=== PATIENT | female | born 1960 | race Caucasian/White ===

== ENCOUNTER → 2017-01-08 | Outpatient (CLI) | payer OTHER ==
--- NOTE | 2017-01-08 15:06 | MR ---
EXAMINATION TYPE: MR thoracic spine wo con DATE OF EXAM: 01/08/2017 2:47 PM COMPARISON: NONE HISTORY: arthropathy, right groin pain Multiplanar MultiSpin echo imaging of the thoracic spine was performed. Disc spaces: Mild multilevel degenerative disc disease and spondylosis. No evidence for herniation or protrusion. Spinal canal: No evidence for canal stenosis. No intrinsic or extrinsic lesion. Thoracic spinal cord: Thoracic spinal cord is of normal caliber and signal. Paraspinal soft tissues: No evidence for paraspinal mass. No destructive lesions seen. Vertebral segments: No evidence for fracture or bony lesion. IMPRESSION: 1. Mild degenerative disc disease and spondylosis. No evidence for significant disc bulge, herniation or protrusion. No central stenosis.
== END | disposition home or self-care (01) ==
LOC: RADMRIMAIN 13:37
PROVIDERS: ATTEND Internal Medicine
DX: M51.34 Other intervertebral disc degeneration, thoracic region (principal); M47.814 Spondylosis without myelopathy or radiculopathy, thoracic region
CPT/HCPCS: 72146

== ENCOUNTER → 2018-06-10 | Outpatient (CLI) | payer BC ==
--- NOTE | 2018-06-10 23:23 | CONS ---
CONSULTATION This is a consultation for sleep apnea. This is a 57-year-old female patient with having his cardiac arrhythmia and there was a concern that she may have an underlying obstructive sleep apnea. Note that the patient has history of SVT and she has undergone ablation x2. SVT was ablated and following that, the patient started developing paroxysmal atrial fibrillation. Currently she has a loop recorder in place. She is having nocturnal atrial fibrillation where she is waking up with palpitations and this has occurred on several occasions. Currently she is taking flecainide 100 mg twice a day. She is also on metoprolol for rate control and Xarelto. Current rhythm is sinus for now. In terms of sleep apnea. She has loud snoring. She wakes up with dry mouth. She has night time arousals with palpitation and atrial fibrillation. She goes to bed around 9 to 10 p.m., wakes up at 4 a.m. in the morning. She is averaging 7 hours of sleep at least. No major hypersomnia or sleepiness. Her [place] score is at 3. No recent weight gain. The patient has lost around 10 pounds since her last evaluation. The patient is sleeps in different body positions other than her stomach. No history of any motor vehicle accident because of feeling drowsy or sleepy during the day. No chest pain. No nocturnal heartburn. PAST MEDICAL HISTORY: 1. Obesity. 2. History of supraventricular tachycardia. 3. History of paroxysmal atrial fibrillation. 4. Hypertension. PAST SURGICAL HISTORY: Include cholecystectomy, appendectomy, tonsillectomy and adenoidectomy. DRUG ALLERGIES: Not known. SHE IS ALLERGIC TO TAPE. OUTPATIENT MEDICATIONS INCLUDE: 1. Flecainide 100 mg twice a day. 2. Xarelto 20 mg p.o. daily. 3. Metoprolol 50 mg p.o. daily. 4. Norvasc 10 mg p.o. daily. SOCIAL HISTORY: No history of smoking, no history of alcoholism. No history of IV drugs. FAMILY HISTORY: Father has obstructive sleep apnea. REVIEW OF SYSTEMS: 14-point review of system was done. Positive findings are mentioned in history of present illness. No history of any insomnia he does not wake up gasping or choking. No nocturia. No grinding of the teeth. No sleepwalking. No anxiety or panic attacks. No depression. No heartburn. No restlessness in lower extremities. No anxiety. No depression. No memory problems or concentration problems. She has palpitations specially at night time and she has woken up a couple of times with atrial fibrillation. No focal neurological deficits. No previous history of TIAs. No altered mentation. PHYSICAL EXAMINATION: BP is 140/8, pulse 64, respirations 16, temperature 98.5, saturation is 96% on room air. Weight is 266. Height is 5 feet 7 inches and neck size 16.5 inches, BMI 41.6. GENERAL APPEARANCE: Calm comfortable. Head is atraumatic, normocephalic. NECK: Supple. No JVD. No goiter or neck masses. Mallampati class IV. LUNGS: Clear to auscultation. HEART: Sounds regular rate and rhythm. Normal S1, S2. No S3. No murmurs. ABDOMEN: Soft, nontender. No organomegaly. EXTREMITIES: No edema. No cyanosis or clubbing. NEUROLOGIC: Alert and oriented x3. No focal neurological deficits. PSYCHIATRIC: Negative for anxiety or depression. Skin is negative for any wounds or ulcerations. IMPRESSION: 1. Loud snoring. 2. Paroxysmal atrial fibrillation with nocturnal episodes based on loop recording. History of underlying obstructive sleep apnea. 3. Previous history of supraventricular tachycardia status post ablation. 4. Obesity with a BMI of 41.6. 5. Family history of obstructive sleep apnea. PLAN: Discussed the findings with the patient. Obviously there was a concern for sleep breathing disorder especially with her underlying cardiac history and this warrants further investigation. I am going to proceed with a home sleep study to look for any significant apneas or hypopneas during nocturnal oxygen desaturation. Contributing to this patient's cardiac arrhythmias. She was encouraged to lose weight. Her current BMI is 41.6. She will benefit from weight loss. No major hypersomnia or sleepiness. No signs of any congestive heart failure. Continue same medication. Implement good sleep hygiene. We will continue to follow. We will make further recommendations based on the results of the home sleep study. MMODL / IJN: [id number] /
== END ==
LOC: SLEEP 15:20
PROVIDERS: ATTEND Internal Medicine
DX: G47.33 Obstructive sleep apnea (adult) (pediatric) (principal); E66.9 Obesity, unspecified; I47.1 Supraventricular tachycardia; Z68.41 Body mass index [BMI] 40.0-44.9, adult
CPT/HCPCS: 99211

== ENCOUNTER → 2018-10-28 | Outpatient (CLI) | payer BC ==
--- NOTE | 2018-10-28 16:50 | PN ---
PROGRESS NOTE This is a pleasant 57-year-old female patient coming in for a compliance check regarding obstructive sleep apnea. The patient was diagnosed having mild IRAM with an AHI of 14 and the patient was given CPAP therapy at a pressure of 8 cm of water. On today's evaluation, the patient is feeling slightly better. She reports marked decrease in the frequency of A. fib that she was having and this was recorded on the monitor. The patient has been averaging around 5 hours of CPAP use per night and her use of more than 4 hours at 19 out of 30. AHI is down to 2.3 and leak is 11/L per minute. She is using a rebreather nose mask. No major hypersomnia or sleepiness. [place] score is down to 3. She has gained a few pounds in the order of 10 pounds over the past 1 month. REVIEW OF SYSTEMS: Full review of system was done. Positive findings are mentioned above in history of present illness. PHYSICAL EXAMINATION: BP is 155/84, pulse is 58, respirations 16, and weight is 276, temperature 97.8. Saturation 97% on room air. GENERAL APPEARANCE: Calm, comfortable. HEENT: Head is atraumatic, normocephalic. NECK: Supple. No JVD. No goiter. No neck mass. LUNGS: Clear to auscultation. HEART: Sounds regular rate and rhythm. Normal S1, S2. No S3, no murmurs. ABDOMEN: Soft, nontender. No organomegaly. EXTREMITIES: No edema, cyanosis or clubbing. NEUROLOGIC: The patient is alert and oriented x3. No focal neurological deficits. PSYCHIATRIC: Negative for anxiety or depression. IMPRESSION: 1. Obstructive sleep apnea. Mild in severity. AHI of 14. Currently on CPAP pressure of 8 cm of water. Treatment has been extremely successful. 2. Obesity with interval 10 pounds weight gain. 3. Hypersomnia, improved. 4. Paroxysmal atrial fibrillation. 5. Hypertension. PLAN: 1. Encourage weight loss. 2. Keep same CPAP pressure. 3. Continue Revita nose mask. 4. Encourage weight loss. 5. Treatment is successful, see me back in a year's time, earlier if needed. MMODL / IJN: [id number] /
== END | disposition home or self-care (01) ==

== ENCOUNTER → 2019-04-09 | Outpatient (CLI) | payer BC ==
[2019-04-09 10:43] LABS: Basophils % (A) 1 %; Eosinophils # (A) 0.2 k/uL (0-0.7); Eosinophils % (A) 2 %; HCT 41.5 % (34.0-46.0); HGB 14.3 gm/dL (11.4-16.0); Lymphocytes # (A) 2.2 k/uL (1.0-4.8); Lymphocytes % (A) 32 %; MCH 30.8 pg (25.0-35.0); MCHC 34.4 g/dL (31.0-37.0); MCV 89.7 fL (80.0-100.0); Mean Platelet Volume 7.7; Monocytes # (A) 0.4 k/uL (0-1.0); Monocytes % (A) 6 %; Neutrophils % (A) 57 %; Platelet Count 309 k/uL (150-450); RBC 4.62 m/uL (3.80-5.40); RDW 13.4 % (11.5-15.5)
== END | disposition home or self-care (01) ==
LOC: LABPAT 09:36
PROVIDERS: ATTEND Obstetrics & Gynecology
DX: Z01.818 Encounter for other preprocedural examination (principal); Z01.812 Encounter for preprocedural laboratory examination; N90.7 Vulvar cyst; I10 Essential (primary) hypertension
CPT/HCPCS: 85025; 93005

== ENCOUNTER 2019-04-13 07:06 | Day surgery (SDC) | payer BC ==
[2019-04-10 09:17] VITALS: BMI 42.3
[~2019-04-13 07:06] MED LIST: DEXAMETHASONE SOD PHOSPHATE 10 MG/ML 1 ML VIAL IV ONE; HYDROmorphone 0.5 MG/0.5 ML SYRINGE IVP PRN; LACTATED RINGERS 1,000 ML IV SCH; MIDAZOLAM 2 MG/2 ML VIAL IV PRN; ONDANSETRON 4 MG/2 ML VIAL IVP ONE; Pre Op ABX Message 1 EACH MISC MISCELLANE ONE; SCOPOLAMINE 1.5MG/72HR PATCH TRANSDERM ONE
[2019-04-13] MEDS ORDERED: LIDOCAINE 1% 20 ML VIAL (10MG/ML) FOR IV START INTRADERMA ONE (07:52)
[2019-04-13] MEDS ORDERED: LIDOCAINE 1%-EPI 1:100,000 20 ML VIAL SQ ONE ×2 (08:28→08:52)
[2019-04-13] MEDS ORDERED: MIDAZOLAM 2 MG/2 ML VIAL ONE (08:31)
[2019-04-13] MEDS ORDERED: KETOROLAC 30 MG/ML 1 ML VIAL ONE (08:31)
[2019-04-13] MEDS ORDERED: LIDOCAINE 1% INJ 10MG/ML (20 ML MDV) ONE (08:31)
[2019-04-13] MEDS ORDERED: fentaNYL (PF) 50 MCG/ML 2 ML AMP ONE (08:31)
[2019-04-13] MEDS ORDERED: SUCCINYLCHOLINE CHLORIDE 100 MG/5 ML SYR IV ONE (08:31)
[2019-04-13] MEDS ORDERED: PROPOFOL 10 MG/ML 20 ML VIAL IV ONE (08:31)
[2019-04-13 08:32] LABS: Potassium 4.3 mmol/L (3.5-5.1)
[2019-04-13] MEDS ORDERED: BACITRACIN 500 UNIT/GM OINT 28.4 GM TUBE TOPICAL ONE (09:07)
--- NOTE | 2019-04-13 09:14 | P.OP ---
Date of Procedure: 04/13/19 Preoperative Diagnosis: Recurrent 3-4 cm right labial cyst Postoperative Diagnosis: Same Procedure(s) Performed: Excision right labial cyst with repair of vaginal mucosa Anesthesia: SONIA Surgeon: Emily Tinajero Estimated Blood Loss (ml): 20 IV fluids (ml): 400 Urine output (ml): 100 Pathology: other (Right labial cyst) Condition: stable Description of Procedure: Patient is brought to the operating suite where general anesthetic is administered without difficulty. She's placed in the dorsal lithotomy position. The perineal body and bilateral labia are prepped and draped in usual sterile fashion. The appropriate timeout is performed to assure proper patient procedure identification. The right labia is noted to contain a 3-4 cm sebaceous appearing cyst. The vaginal mucosa is opened with a sharp scalpel. Allis clamps are used to hold the vaginal mucosa bilaterally. The handle of the scalpel is used to separate the cyst from the labial pringle. It is removed intact and sent to pathology for evaluation. Electrocautery is used on the base for excellent hemostasis. 3-0 Vicryl suture is used now to repair the vaginal mucosa and a running locking manner. 2 deep [id number] sutures are placed to assure good hemostasis. All sponge needle and enhancement counts are correct at the end of the procedure. Total estimated blood loss 20 mL's. Fluid replacement 400 mL's. Patient is brought back to recovery room in very good condition with a blood pressure 126/77, pulse 52, 98% O2 saturation. Please note that basic tracing was placed on the surface of the repair along with a jesus alberto-pad. Patient will follow-up with me in the office in 2 weeks.
[2019-04-13 09:33] VITALS: TEMP 97.4
[2019-04-13 10:14] VITALS: BP 134/88; PULSE 67; RESP 16
== END 2019-04-13 10:50 | disposition home or self-care (01) ==
LOC: OR 07:06
PROVIDERS: ATTEND Obstetrics & Gynecology
DX: L72.0 Epidermal cyst (principal); I48.91 Unspecified atrial fibrillation; I10 Essential (primary) hypertension; I47.1 Supraventricular tachycardia; G47.33 Obstructive sleep apnea (adult) (pediatric); K21.9 Gastro-esophageal reflux disease without esophagitis; M85.80 Other specified disorders of bone density and structure, unspecified site; Z86.72 Personal history of thrombophlebitis; Z86.718 Personal history of other venous thrombosis and embolism; Z79.899 Other long term (current) drug therapy; Z79.01 Long term (current) use of anticoagulants; Z91.09 Other allergy status, other than to drugs and biological substances; Z83.3 Family history of diabetes mellitus; Z82.49 Family history of ischemic heart disease and other diseases of the circulatory system; Z87.891 Personal history of nicotine dependence; Z90.49 Acquired absence of other specified parts of digestive tract; Z78.0 Asymptomatic menopausal state; Z99.89 Dependence on other enabling machines and devices; Z98.890 Other specified postprocedural states
CPT/HCPCS: 88304; 80051; 11423; J2250; J1100; J2405; J2001; J3010; J1885; J0330; J2704

== ENCOUNTER → 2019-05-08 | Outpatient (CLI) | payer BC ==
--- NOTE | 2019-05-11 13:52 | MM ---
Reason for exam: screening (asymptomatic). Last mammogram was performed 4 years and 1 month ago. History: Patient is postmenopausal and is nulliparous. Took hormonal contraceptives for 25 years beginning at age 12. Physical Findings: A clinical breast exam by your physician is recommended on an annual basis and results should be correlated with mammographic findings. MG Screening Mammo w CAD Bilateral CC, MLO, and CV view(s) were taken. Prior study comparison: March 30, 2015, left breast MG 3d diag mammo w/cad LT. October 05, 2014, left breast MG work up mamm w CAD LT. The breast tissue is heterogeneously dense. This may lower the sensitivity of mammography. No suspicious abnormality. No significant changes when compared with prior studies. ASSESSMENT: Negative, BI-RAD 1 RECOMMENDATION: Routine screening mammogram of both breasts in 1 year.
== END | disposition home or self-care (01) ==
LOC: RADMAMWWP 06:58
PROVIDERS: ATTEND Obstetrics & Gynecology
DX: Z12.31 Encounter for screening mammogram for malignant neoplasm of breast (principal)
CPT/HCPCS: 77067

== ENCOUNTER → 2019-08-14 | Outpatient (CLI) | payer BC ==
[2019-08-14 11:33] LABS: Basophils # (A) 0.1 k/uL (0-0.2); Basophils % (A) 1 %; Eosinophils # (A) 0.2 k/uL (0-0.7); Eosinophils % (A) 3 %; HCT 42.7 % (34.0-46.0); HGB 13.5 gm/dL (11.4-16.0); Lymphocytes % (A) 29 %; MCH 29.3 pg (25.0-35.0); MCHC 31.7 g/dL (31.0-37.0); MCV 92.4 fL (80.0-100.0); Mean Platelet Volume 7.6; Monocytes # (A) 0.4 k/uL (0-1.0); Monocytes % (A) 6 %; Neutrophils % (A) 58 %; Platelet Count 284 k/uL (150-450); RBC 4.62 m/uL (3.80-5.40); RDW 13.3 % (11.5-15.5); WBC 6.9 k/uL (3.8-10.6)
[2019-08-14 16:15] LABS: African American GFR (CKD) 110.7 (60.0-200.0); Albumin 4.3 g/dL (3.80-4.90); Albumin/Globulin Ratio 1.79 (1.60-3.17); BUN/Creat Ratio 21.43 Ratio (12.00-20.00); Calcium 9.1 mg/dL (8.7-10.3); Chol/HDL Ratio 2.78; Globulin 2.4 g/dL (1.6-3.3); LDL Cholesterol,Calculated 107.8 mg/dL (0.0-131.0); Non-African American GFR(CKD) 95.5 (60.0-200.0); Potassium 4.2 mmol/L (3.5-5.5); Total Bilirubin 0.7 mg/dL (0.2-1.2); Total Protein 6.7 g/dL (6.2-8.2); VLDL Calculation 13.2 mg/dL (5.00-40.00)
== END | disposition home or self-care (01) ==
LOC: LABWHC1 10:29
PROVIDERS: ATTEND Internal Medicine Clinical Cardiac Electrophysiology
DX: I10 Essential (primary) hypertension (principal); I48.0 Paroxysmal atrial fibrillation; E78.2 Mixed hyperlipidemia
CPT/HCPCS: 36415; 80053; 80061; 84443; 85025

== ENCOUNTER → 2020-02-09 | Outpatient (CLI) | payer BC ==
--- NOTE | 2020-02-09 16:49 | PN ---
PROGRESS NOTE Emily is coming in for an annual check. She has mild sleep apnea, AHI of 14, currently she is on CPAP pressure of 8. Since her last evaluation, the patient has gained around 15 pounds. She attributes this mainly to COVID-19 pandemic and inactivity. Her compliance with the CPAP machine is cut down. She is averaging around 4.4 hours of CPAP use per night, CPAP use for more than 4 hours is around 13/30 and the patient has been utilizing the machine 22/30 days and this is based on a 30-day compliancy data. Leak is noted a 7 L and AHI is down to 2.2. No new complaints otherwise for now. REVIEW OF SYSTEM: Unchanged compared to his last presentation. Weight is 289, BP is 138/77, pulse 74, respirations 16, temperature 98 0, and saturation 98% on room air. GENERAL APPEARANCE: Calm, comfortable. HEAD: Atraumatic, normocephalic. NECK: Supple. No JVD. No goiter or neck masses. LUNGS: Clear to auscultation. HEART: Heart sounds are regular rate and rhythm, normal S1, S2 no murmurs. ABDOMEN: Soft, nontender, no organomegaly. EXTREMITIES: No edema, no cyanosis or clubbing. IMPRESSION: 1. Symptomatic OS AHI of 14, currently on CPAP pressure of 8. There is some drop in compliancy compared to last year. 2. Obesity with ongoing weight gain, current BMI 45.2. 3. Chronic hypersomnia. 4. Paroxysmal atrial fibrillation, currently inactive and stable and the patient is on long-term anticoagulation with Xarelto. 5. Hypertension. PLAN: 1. Encourage weight loss. 2. Offer the patient climate line. She was complaining of some cool air pumping into her lungs and climate line should be able to regulate the temperature of the tubing and offer her some heated humidity. 3. Keep same pressure setting. 4. Improve compliancy and the patient was asked to average at least 5 or 6 hours per night, if possible. 5. See me back in followup in a year's time, earlier if needed. MMLAMARL / KIERAN: [id number] /
== END | disposition home or self-care (01) ==
LOC: SLEEP 16:06
PROVIDERS: ATTEND Internal Medicine Critical Care Medicine
DX: G47.30 Sleep apnea, unspecified (principal); I48.0 Paroxysmal atrial fibrillation; I10 Essential (primary) hypertension; E66.9 Obesity, unspecified; Z68.42 Body mass index [BMI] 45.0-49.9, adult; Z79.01 Long term (current) use of anticoagulants; Z99.89 Dependence on other enabling machines and devices

== ENCOUNTER → 2020-07-08 | Outpatient (CLI) | payer BC ==
--- NOTE | 2020-07-08 12:31 | US ---
EXAMINATION TYPE: US venous doppler duplex LE RT DATE OF EXAM: 07/08/2020 12:23 PM COMPARISON: NONE CLINICAL HISTORY: 59-year-old female Right lower extremity pain M79.604. Right leg pain x couple days following recent flight, patient on blood thinners SIDE PERFORMED: Right TECHNIQUE: The lower extremity deep venous system is examined utilizing real time linear array sonog nomi with graded compression, doppler sonography and color-flow sonography. FINDINGS: VESSELS IMAGED: Common Femoral Vein Deep Femoral Vein Greater Saphenous Vein * Femoral Vein Popliteal Vein Small Saphenous Vein * Proximal Calf Veins (* superficial vessels) Right Leg: Appears negative for DVT 6.0 x 1.4 x 3.5cm Cornejo's cyst right popliteal fossa IMPRESSION: 1. No evidence for DVT within the right lower extremity imaged from the groin to the upper calf. 2. Small to moderate sized Cornejo's cyst.
== END | disposition home or self-care (01) ==
LOC: RADUSWWP 12:05
PROVIDERS: ATTEND Internal Medicine
DX: M71.21 Synovial cyst of popliteal space [Baker], right knee (principal)

== ENCOUNTER → 2020-08-04 | Outpatient (CLI) | payer BC ==
--- NOTE | 2020-08-05 09:11 | MM ---
Reason for exam: additional evaluation requested from abnormal screening. Last mammogram was performed 1 year and 3 months ago. History: Patient is postmenopausal and is nulliparous. Took hormonal contraceptives for 25 years beginning at age 12. Physical Findings: Nurse did not find any significant physical abnormalities on exam. MG 3D Diag Mammo W/Cad IGGY Bilateral CC and MLO view(s) were taken. Prior study comparison: May 08, 2019, bilateral MG screening mammo w CAD. March 30, 2015, left breast MG 3d diag mammo w/cad LT. There are scattered fibroglandular densities. No mammographic findings. These results were verbally communicated with the patient and result sheet given to the patient on 08/04/20. ASSESSMENT: Incomplete: need additional imaging evaluation, BI-RAD 0 RECOMMENDATION: Ultrasound of both breasts. (palpable lumps)
--- NOTE | 2020-08-05 09:13 | USB ---
Reason for exam: additional evaluation requested from abnormal screening. History: Patient is postmenopausal and is nulliparous. Took hormonal contraceptives for 25 years beginning at age 12. US Breast Limited BILAT Right limited breast ultrasound including focal area of concern, retroareolar and axilla demonstrates a 1.8 x 1.1 x 2.1cm mixed lesion at 12 o'clock, heterogeneous, hyperechoic, probably benign. These results were verbally communicated with the patient and result sheet given to the patient on 08/04/20. ASSESSMENT: Probably benign, BI-RAD 3 RECOMMENDATION: Ultrasound of the right breast in 3 months.
== END | disposition home or self-care (01) ==
LOC: RADMAMWWP 13:57
PROVIDERS: ATTEND Obstetrics & Gynecology
DX: N64.89 Other specified disorders of breast (principal); N64.59 Other signs and symptoms in breast; Z78.0 Asymptomatic menopausal state
CPT/HCPCS: 77062; 77066

== ENCOUNTER 2020-09-12 07:12 | Day surgery (SDC) | payer BC ==
[2020-09-08 09:55] VITALS: BMI 45.6
[~2020-09-12 07:12] MED LIST changes: -DEXAMETHASONE SOD PHOSPHATE 10 MG/ML 1 ML VIAL IV ONE; -HYDROmorphone 0.5 MG/0.5 ML SYRINGE IVP PRN; -LACTATED RINGERS 1,000 ML IV SCH; -MIDAZOLAM 2 MG/2 ML VIAL IV PRN; -ONDANSETRON 4 MG/2 ML VIAL IVP ONE; -Pre Op ABX Message 1 EACH MISC MISCELLANE ONE; -SCOPOLAMINE 1.5MG/72HR PATCH TRANSDERM ONE; +SODIUM CHLORIDE 0.9% 1,000 ML IV SCH
[2020-09-12 07:45] VITALS: RESP 18; TEMP 98.7
[2020-09-12] MEDS ORDERED: LIDOCAINE 1% INJ 10MG/ML (20 ML MDV) ONE ×2 (08:05→08:19)
[2020-09-12] MEDS ORDERED: MIDAZOLAM 2 MG/2 ML VIAL IV ONE (08:15)
[2020-09-12] MEDS ORDERED: LIDOCAINE 1% INJ 10MG/ML (20 ML MDV) SQ ONE (08:18)
[2020-09-12] MEDS ORDERED: fentaNYL (PF) 50 MCG/ML 2 ML AMP ONE (08:25)
[2020-09-12] MEDS ORDERED: fentaNYL (PF) 50 MCG/ML 2 ML AMP IV ONE (08:25)
--- NOTE | 2020-09-12 08:33 | P.EPPROC ---
- EP Procedure Note Electrophysiology Procedure Note: Procedure: Loop explant under sedation and local anesthesia. Diagnosis: Loop monitor at [facility] Patient was brought to the EP lab in a fasting state. Written informed consent was obtained prior to the procedure. The subcutaneous device was successfully explanted under local anesthesia. Preoperative antibiotics were administered. The wound was closed in layers and dressed per protocol. Result: Successful loop monitor explantation. Loop monitor implant Primary physicians: [facility] Worker: Dr. Trimble Indication: A. fib management, patient is on flecainide, has paroxysms of A. fib as well as tachybradycardia syndrome Patient was brought to the EP lab in a fasting state. Written informed consent was obtained prior to the procedure. The left pectoral area was prepped and draped per protocol. Intravenous antibiotic was administered preoperatively. A subcutaneous Loop monitor was implanted successfully and the wound was closed per protocol. The device was programmed to detect significant kristen- arrhythmic and tachy-arrhythmic events, per protocol. Device and programming details: A. fib and bradycardia detections Patient underwent EP procedure under conscious sedation/moderate sedation, monitoring of the level of consciousness and physiologic parameters including but not limited to vital signs and oxygenation. Patient tolerated the procedure well without any acute complications. Start time: 8:15 Stop time: 8:30
[2020-09-12 09:13] VITALS: PULSE 57
[2020-09-12 09:39] VITALS: BP 95/51
== END 2020-09-12 09:41 | disposition home or self-care (01) ==
LOC: CATHEP 07:12
PROVIDERS: ATTEND Internal Medicine Clinical Cardiac Electrophysiology
DX: I48.0 Paroxysmal atrial fibrillation (principal); I10 Essential (primary) hypertension; E66.9 Obesity, unspecified; Z68.42 Body mass index [BMI] 45.0-49.9, adult; M79.89 Other specified soft tissue disorders; Z20.822 Contact with and (suspected) exposure to COVID-19; I47.1 Supraventricular tachycardia; Z79.899 Other long term (current) drug therapy; Z87.891 Personal history of nicotine dependence; Z79.01 Long term (current) use of anticoagulants
CPT/HCPCS: 33285; 33286; 87635; C1764; J2250; J0690; J2001; J3010

== ENCOUNTER → 2020-12-28 | Outpatient (CLI) | payer BC ==
--- NOTE | 2020-12-28 09:50 | USB ---
Reason for exam: follow-up at short interval from prior study. History: Patient is postmenopausal and is nulliparous. Took hormonal contraceptives for 25 years beginning at age 12. Physical Findings: Nurse did not find any significant physical abnormalities on exam. US Breast Limited RT Right limited breast ultrasound including focal area of concern, retroareolar and axilla demonstrates a 9 x 4 x 5mm mixed lesion at 12 o'clock. There is a small less than 0.5cm nodularity at 12 o'clock position with adjacent hyperechoic density. This is a change from prior 08/04/20. May be an intraductal papilloma. Recommend biopsy if reproducible, or short term follow up if not seen at biopsy attempt. These results were verbally communicated with the patient and result sheet given to the patient on 12/28/20. ASSESSMENT: Suspicious, BI-RAD 4 RECOMMENDATION: Ultrasound core biopsy of the right breast. Called Dr. Tinajero's office with mammographic findings and has scheduled an appointment for the patient for 01/04/21 at 10:[address] Torres. PRELIMINARY REPORT CALLED AND FAXED TO DR. TORRES ON 12/28/20.
== END | disposition home or self-care (01) ==
LOC: RADUSWWP 07:06
PROVIDERS: ATTEND Obstetrics & Gynecology
DX: R92.8 Other abnormal and inconclusive findings on diagnostic imaging of breast (principal)

== ENCOUNTER → 2021-01-19 | Day surgery (SDC) | payer BC ==
[2021-01-19 12:15] VITALS: BP 133/84; PULSE 71; RESP 16; TEMP 97.9
--- NOTE | 2021-01-19 14:29 | USB ---
EXAMINATION TYPE: US discontinued breast bx RT DATE OF EXAM: 01/19/2021 COMPARISON: 12/28/2020, 08/04/2020 HISTORY: 60-year-old female referred for ultrasound-guided right breast biopsy. TECHNIQUE: Initial targeted ultrasound for biopsy planning purposes at the 12:00 position right breas t. FINDINGS: Initial images show a 6 mm heterogeneous lesion at the 12:00 position, zone A. On 12/28/2020, this me asured 9 mm. The patient reports focal injury here with a box falling on the area followed by bruisin g and a palpable lump. The lump and bruising have resolved. The initially seen lesion on 08/04/2020 at the time of injury was much larger and echogenic suggesting hematoma. Current findings probably repr esent a small residual hematoma. Given further decrease in size, three-month follow-up ultrasound rec ommended to reassess. Biopsy will be deferred at this time. Findings and recommendation were discusse d with the patient. IMPRESSION: BI-RADS 3, probably benign. Suspect tiny residual hematoma at the site of patient's 12:00 right breas t injury. RECOMMENDATION: 1. Three-month follow-up targeted right breast ultrasound to ensure complete involution. If there is a persistent lesion here, biopsy can be performed at that time. 2. Patient should continue monthly self breast exam.
== END ==
LOC: RADUSWWP 11:57
PROVIDERS: ATTEND Surgery
DX: R92.8 Other abnormal and inconclusive findings on diagnostic imaging of breast (principal); Z53.9 Procedure and treatment not carried out, unspecified reason

== ENCOUNTER → 2021-02-28 | Outpatient (CLI) | payer BC ==
--- NOTE | 2021-02-28 15:28 | PN ---
PROGRESS NOTE Emily is doing well. She is coming in for an annual check regarding obstructive sleep apnea. Baseline AHI is 14. I checked her CPAP machine. The patient's machine is functional. She continues to be on a CPAP pressure of 8 cm of water. Based on the compliance data, the patient utilized her machine 23 out of the past 30 days, achieving around 5.5 hours of CPAP use per night with a leak of 6 L/minute, and her AHI while on treatment is down to 1.9. She is using a Brevida extra-small/small nose mask. No complaints otherwise. She has gained a few pounds since her last evaluation. No nocturnal chest pain or shortness of breath or heartburn. She is waking up refreshed and alert during the day. No other new complaints. Her cardiac rhythm is sinus, knowing that she has history of paroxysmal atrial fibrillation. REVIEW OF SYSTEMS: Fourteen-point review of systems was done. Positive findings are all mentioned above in the history of present illness. PHYSICAL EXAMINATION: BP is 125/70, pulse 56, respirations 16, temperature 98.1, saturation 97% on room air. Height is 5 feet 7 inches, weight is 293, BMI 45.8. GENERAL APPEARANCE: Calm, comfortable. HEAD: Atraumatic, normocephalic. Neck is supple. No JVD. No goiter or neck masses. LUNGS: Clear to auscultation. Heart sounds are regular rate and rhythm. Normal S1, S2. No S3, S4. No murmurs. ABDOMEN: Soft, nontender. No organomegaly. EXTREMITIES: No edema. No cyanosis or clubbing. NEUROLOGIC: Awake and alert. There is no focal neurological deficit. IMPRESSION: 1. Symptomatic obstructive sleep apnea. AHI of 14, currently on CPAP pressure of 8 cm of water. 2. Hypersomnia, improved. The patient's [place] score is down to 8. 3. Paroxysmal atrial fibrillation. Remains in sinus rhythm. 4. Hypertension. 5. Obesity with a BMI of 45.8. PLAN: 1. Encourage weight loss. 2. Cardiac rhythm is sinus. 3. Hemodynamically stable with adequate blood pressure control. 4. Keep the same pressure with CPAP at a pressure of 8 cm of water. 5. Continue the Brevida extra-small/small mask. 6. No need for any further adjustments. Treatment is successful. The patient is responding to treatment well. See me back in a few years' time in followup, earlier if needed. For now, no need for any further changes. The supplies will be refilled. MMODL / IJN: [id number] /
== END | disposition home or self-care (01) ==
LOC: SLEEP 13:13
PROVIDERS: ATTEND Internal Medicine Critical Care Medicine
DX: G47.33 Obstructive sleep apnea (adult) (pediatric) (principal); G47.10 Hypersomnia, unspecified; I48.91 Unspecified atrial fibrillation; I10 Essential (primary) hypertension; E66.9 Obesity, unspecified; Z68.42 Body mass index [BMI] 45.0-49.9, adult

== ENCOUNTER → 2022-05-29 | Outpatient (CLI) | payer BC ==
--- NOTE | 2022-05-29 16:31 | P.PN ---
Progress Note - Text Progress Note Date: 05/29/22 This is a 61-year-old female patient was coming in for a regular check regarding her obstructive sleep apnea. The patient is obese and she has history of paroxysmal atrial fibrillation and she has obstructive sleep apnea with an AHI of 14. The patient was treated with a pressure of 8 cm of water. On today's evaluation, she has no new complaints. She is still having episodes of atrial fibrillation on and off. At the time of my evaluation, she was in normal sinus rhythm. Her weight was 293 and currently is up to 300. She is extremely compliant to CPAP therapy and she takes the machine even when she travels. She has been using her machine every night and her compliancy for more than 4 hours as and she's been averaging about 6.2 hours of CPAP use per night with a leak of 7 L/m and had AHI is down to 2 while being on treatment. She is using the Brevida xs-s nasal mask. She is waking up refreshed during the day. No major hypersomnia or sleepiness. No other complaints. Her machine is functional. She is able to drive and she does not fall asleep while driving. BP is 150/73 with a pulse of 55 and a respiration of 16 with a temperature of 97.8 and oxygen saturation 97%. Weight is 300. The patient appeared well nourished and normally developed. Vital signs as documented. Head exam is unremarkable. No scleral icterus or corneal arcus noted. Neck is without jugular venous distension, thyromegaly, or carotid bruits. Carotid upstrokes are brisk bilaterally. Lungs are clear to auscultation and percussion. Cardiac exam reveals the PMI to be normally sized and situated. Rhythm is regular. First and second heart sounds normal. No murmurs, rubs or gallops. Abdominal exam reveals normal bowel sounds, no masses, no organomegaly and no aortic enlargement. Extremities are nonedematous and both femoral and pedal pulses are normal.Examination of the skin revealed no evidence of significant rashes, suspicious appearing nevi or other concerning lesions.Neurologically, the patient is awake and alert and the patient does not have any focal neurological deficit. Cranial nerves are essentially intact. Assessment Obstructive sleep apnea, AHI of 14, maintain on CPAP therapy at a pressure of 8 cm of water. The patient continues to be treated successfully. Paroxysmal atrial fibrillation, current rhythm is sinus Sinus bradycardia, maintain on beta blockers Obesity with a weight of 300 and a body mass index of 47 Hypertension Plan Continue CPAP therapy the same level of pressure which is a centimeters of water. Refill the mask Weight loss May recommend to cut down on the dose of beta kiran as the patient is having some sinus bradycardia She is on long-term and coagulation regarding approximately fibrillation We'll continue to follow
== END ==
LOC: SLEEP 02-20 14:31
PROVIDERS: ATTEND Internal Medicine Critical Care Medicine
DX: G47.33 Obstructive sleep apnea (adult) (pediatric) (principal); I10 Essential (primary) hypertension; E66.9 Obesity, unspecified; I48.0 Paroxysmal atrial fibrillation; Z99.89 Dependence on other enabling machines and devices; Z68.42 Body mass index [BMI] 45.0-49.9, adult; Z91.048 Other nonmedicinal substance allergy status; Z91.038 Other insect allergy status; Z87.891 Personal history of nicotine dependence
CPT/HCPCS: 99212

== ENCOUNTER → 2022-10-16 | Outpatient (CLI) | payer BC ==
--- NOTE | 2022-10-17 08:15 | MM ---
Reason for Exam: Screening (asymptomatic). Last mammogram was performed 2 year(s) and 3 month(s) ago. Patient History: Menarche at age 12. Patient has no children. Postmenopausal. Hormonal Contraceptives for 25 years from age 12 until age 37. 01/19/2021, US discontinued breast bx RT on the right side. Risk Values: Carley 5 year model risk: 1.8%. NCI Lifetime model risk: 8.6%. Prior Study Comparison: 03/30/2015 Left Diagnostic Mammogram, [facility]. 05/08/2019 Bilateral Screening Mammogram, [facility]. 08/04/2020 Bilateral Diagnostic Mammogram, [facility]. Tissue Density: There are scattered fibroglandular densities. Findings: Analyzed By CAD. There is no suspicious group of microcalcifications or new suspicious mass in either breast. Benign-appearing calcifications within both breasts. Stable bilateral focal asymmetries. Overall Assessment: Benign, BI-RAD 2 Management: Screening Mammogram of both breasts in 1 year. A clinical breast exam by your physician is recommended on an annual basis and results should be correlated with mammographic findings. Note on Carley scores and lifetime risk: 1. A Carley score greater than 3% is considered moderate risk. If this is the case, consider specialist referral to assess eligibility for a risk reducing agent. If overall lifetime risk for the development of breast cancer is 20% or higher, the patient may qualify for future screening with alternating mammogram and breast MRI. Electronically signed and approved by: Joseph Bernardo D.O.
== END | disposition home or self-care (01) ==
LOC: RADMAMWWP 16:31
PROVIDERS: ATTEND Obstetrics & Gynecology
DX: Z12.31 Encounter for screening mammogram for malignant neoplasm of breast (principal); Z78.0 Asymptomatic menopausal state
CPT/HCPCS: 77063; 77067

== ENCOUNTER → 2022-10-16 | Outpatient (CLI) | payer BC ==
--- NOTE | 2022-10-16 18:23 | XR ---
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 COMPARISON: None. FINDINGS: There are 5 lumbar type vertebral bodies identified. No acute fracture or dislocation. Minimal grade 1 anterolisthesis of L4 on L5. No obvious pars defect. Vertebral body heights are within normal limit s. Multilevel disc space narrowing with anterior osteophytosis and endplate sclerosis. Multilevel f acet arthropathy. The overlying soft tissue appears unremarkable. IMPRESSION: 1. No acute fracture or dislocation is seen in the lumbar spine. 2. Mild to moderate multilevel degenerative disc disease and facet arthropathy. 3. Minimal grade 1 anterolisthesis of L4 on L5.
== END | disposition home or self-care (01) ==
LOC: RADXRMAIN 16:15
PROVIDERS: ATTEND Internal Medicine
DX: M47.816 Spondylosis without myelopathy or radiculopathy, lumbar region (principal); M51.36 Other intervertebral disc degeneration, lumbar region; M43.16 Spondylolisthesis, lumbar region
CPT/HCPCS: 72100

== ENCOUNTER → 2023-05-02 | Outpatient (CLI) | payer BC ==
--- NOTE | 2023-05-02 11:15 | CT ---
EXAMINATION TYPE: CT angio chest DATE OF EXAM: 05/02/2023 10:18 AM COMPARISON: None available. HISTORY: Left subclavian stenosis. CT DLP: 6491.50 mGycm Automated exposure control for dose reduction was used. CONTRAST: CTA scan of the thorax is performed with IV Contrast, patient injected with 180 mL of Isovue 370, pul monary embolism protocol. . FINDINGS: Mediastinum and [place]: There is no axillary, mediastinal or hilar lymphadenopathy. Pleural and Pericardial spaces: There are no pleural or pericardial effusions. Upper Abdomen: The visualized upper abdomen is unremarkable. Cardiovascular: There is minimal vascular calcification within the thoracic aorta without evidence of aneurysmal dilation or dissection. Based on the scope of this examination. There is no significant s tenosis of the visualized portion of the subclavian. There is some mild atherosclerotic calcification at the origin of the right and left subclavian arteries without definitive significant stenosis. Pulmonary Artery: There are no definitive filling defects within the pulmonary arteries, however some what limited. Lung Parenchyma and Airways: The the visualized portions of the lungs are clear. The right lung field is not entirely included on the evaluation. Bones: No fracture or aggressive osseous lesion. IMPRESSION: 1. Mild atherosclerotic calcific changes within the origin of the right and left subclavian arteries with no definitive significant stenosis seen based on this examination, however limited as this is ve nous phase. 2. No evidence of thoracic aortic aneurysm or dissection. 3. No evidence of pneumonia, pleural or pericardial effusions.
== END | disposition home or self-care (01) ==
LOC: RADCTMAIN 07:40
PROVIDERS: ATTEND Internal Medicine
DX: I70.8 Atherosclerosis of other arteries (principal); I77.1 Stricture of artery
CPT/HCPCS: 71275; Q9967

== ENCOUNTER → 2024-02-28 | Outpatient (CLI) | payer OTHER ==
--- NOTE | 2024-02-28 23:54 | BD ---
EXAMINATION TYPE: Axial Bone Density DATE OF EXAM: 02/28/2024 CLINICAL HISTORY: 63 years old Female. ICD-10 CODE: M85.851 DISRD OF BONE DENSITY , Additional Hist ory: Height: 66.25 Weight: 292.0 FRAX RISK QUESTIONS: Alcohol (3 or more units per day): no Family History (Parent hip fracture): no Glucocorticoids (More than 3mos): no (Ex: prednisone, prednisolone, methylprednisolone, dexamethasone, and hydrocortisone). History of Fracture in Adulthood: no Secondary Osteoporosis: 1. Type 1 Diabetes: no 2. Hyperthyroidism: no 3. Menopause before 45: yes 4. Malnutrition: no 5. Chronic liver disease: no Rheumatoid Arthritis: no Current Tobacco Use: no RISK FACTORS HISTORY OF: Hip Fracture (Right/Left): no Spine Fracture: no History of Wrist Fracture: no Surgery to Spine/Hip(right/left)/Wrist (right/left): no MEDICATIONS: Thyroid Medications: no Osteoporosis Medications: no EXAM MEASUREMENTS: Bone mineral densitometry was performed using the amcure System. Bone mineral density as measured about the Lumbar spine is: ----- L1-L4(G/cm2): 1.335 T Score Values are as follows: ----- L1: 0.9 ----- L2: -0.1 ----- L3: 2.1 ----- L4: 1.6 ----- L1-L4: 1.3 Z Score Values are as follows: ----- L1: 1.2 ----- L2: 0.2 ----- L3: 2.3 ----- L4: 1.9 ----- L1-L4: 1.5 Baseline Study Bone mineral density about the R hip (g/cm2): 0.907 Bone mineral density about the L hip (g/cm2): 1.035 T Score values are as follows: -----R Neck: -1.3 -----L Neck: -0.3 -----R Total: -0.8 -----L Total: 0.2 Z Score values are as follows: -----R Neck: -0.7 -----L Neck: 0.3 -----R Total: -0.6 -----L Total: 0.4 Baseline Study FRAX%s: The graph provided illustrates a 6.7 % chance for a major osteoporotic fx and a 0.5% chance f or the hips probability for fx in 10 years time. IMPRESSION: Osteopenia (T Score between -2.5 and -1). There is slightly increased risk of fracture and the patient may be considered for treatment. Re-Screen 2-5 years. NOTE: T-SCORE=SD OF THE YOUNG ADULT MEAN. [facility], , 02/28/2024 11:52 PM
--- NOTE | 2024-03-02 11:23 | MM ---
Reason for Exam: Screening (asymptomatic). Last mammogram was performed 1 year(s) and 4 month(s) ago. Patient History: Menarche at age 12. Patient has no children. Postmenopausal. Hormonal Contraceptives for 25 years from age 12 until age 37. 01/19/2021, US discontinued breast bx RT on the right side. Risk Values: Carley 5 year model risk: 1.9%. NCI Lifetime model risk: 8.4%. Prior Study Comparison: 05/08/2019 Bilateral Screening Mammogram, [facility]. 08/04/2020 Bilateral Diagnostic Mammogram, [facility]. 10/16/2022 Bilateral MG 3D screening mammo w/cad, [facility]. Tissue Density: There are scattered areas of fibroglandular density. Findings: Analyzed By CAD. Right breast: There is no suspicious group of microcalcifications or new suspicious mass. Left breast: There is no suspicious group of microcalcifications or new suspicious mass. Overall Assessment: Negative, BI-RAD 1 Management: Screening Mammogram of both breasts in [address] [facility] will attempt to contact patient to return for supplemental views and ultrasound if indicated. Patient should continue monthly self-breast exams. A clinical breast exam by your physician is recommended on an annual basis. This exam should not preclude additional follow-up of suspicious palpable abnormalities. Note on Carley scores and lifetime risk: 1. A Carley score greater than 3% is considered moderate risk. If this is the case, consider specialist referral to assess eligibility for a risk reducing agent. 2. If overall lifetime risk for the development of breast cancer is 20% or higher, the patient may qualify for future screening with alternating mammogram and breast MRI. [facility], , 03/02/2024 11:20 AM. Electronically signed and approved by: Mehul Lorenz DO
== END | disposition home or self-care (01) ==
LOC: RADBDWWP 14:38
PROVIDERS: ATTEND Internal Medicine
DX: Z12.31 Encounter for screening mammogram for malignant neoplasm of breast (principal); M85.851 Other specified disorders of bone density and structure, right thigh; Z78.0 Asymptomatic menopausal state; R92.323 Mammographic fibroglandular density, bilateral breasts
CPT/HCPCS: 77063; 77067; 77080